=== PATIENT | female | born 1985 | race Caucasian/White ===

== ENCOUNTER 2018-07-15 21:44 | Inpatient (IN) | payer MEDICAID, OTHER ==
[~2018-07-15] VITALS: Ht 157.5 cm; Wt 50.3 kg
[2018-07-15] MEDS ORDERED: DiphenhydrAMINE HCL 50 MG/ML VIAL IM ONE (22:30)
[2018-07-15] MEDS ORDERED: LORazepam 2 MG/ML VIAL IM ONE (22:30)
[2018-07-15] MEDS ORDERED: HALOPERIDOL LACTATE 5 MG/ML VIAL IM ONE (22:30)
[2018-07-15] MEDS ORDERED: VENL25TA47 PO (22:37)
[2018-07-15] MEDS ORDERED: ALPR0.5T8 PO (22:37)
[2018-07-15] MEDS ORDERED: QUET100T PO (22:37)
[2018-07-15] MEDS ORDERED: LURA80 PO (22:37)
[2018-07-15] MEDS ORDERED: ZOLP10TA7 PO (22:37)
[2018-07-15 22:55] LABS: BASOPHILS % (AUTO) 0.7 % (0.0-2.0); EOSINOPHILS % (AUTO) 0.3 % (1.0-6.0); HEMATOCRIT 39.3 % (36-46); HEMOGLOBIN 13.3 g/dL (12.0-16.0); LYMPHOCYTES # (AUTO) 3.1 K/uL (1.0-4.8); LYMPHOCYTES % (AUTO) 33.8 % (22.0-44.0); MEAN CORPUSCULAR HGB CONC 33.8 G/dL (31.0-37.0); MEAN CORPUSCULAR VOLUME 86 fL (80-100); MONOCYTES # (AUTO) 0.5 K/uL (0.1-1.0); NEUTROPHILS # (AUTO) 5.5 K/uL (1.8-7.7); NEUTROPHILS % (AUTO) 60.2 % (40.0-70.0); PLATELET COUNT (AUTO) 236 K/uL (150-450); RED BLOOD CELL COUNT(AUTO) 4.58 MIL/uL (4.00-5.20); RED CELL DISTRIBUTION WIDTH 13.4 % (11.5-14.5)
[2018-07-15 23:03] LABS: AMPHET/METH SCREEN,URINE NEGATIVE (NEGATIVE); BARBITURATE SCREEN, URINE NEGATIVE (NEGATIVE); BENZODIAZEPINES SCREEN,URINE NEGATIVE (NEGATIVE); CANNABINOID SCREEN,URINE POSITIVE (NEGATIVE); COCAINE SCREEN,URINE NEGATIVE (NEGATIVE); METHADONE SCREEN, URINE NEGATIVE (NEGATIVE); OPIATE SCREEN,URINE NEGATIVE (NEGATIVE); PHENCYCLIDINE SCREEN,URINE NEGATIVE (NEGATIVE)
[2018-07-15 23:07] LABS: ANION GAP 15 mmol/L (8-16); CARBON DIOXIDE 21 mmol/L (22-29); CHLORIDE 105 mmol/L (98-107); CREATININE 0.44 mg/dL (0.60-1.30); GLOMERULAR FILTR. RATE CALC > 60 mL/min (>60); GLUCOSE,RANDOM 84 mg/dL (70-110); POTASSIUM 3.7 mmol/L (3.5-5.1); SODIUM SERUM 141 mmol/L (136-145); UREA NITROGEN, BLOOD 5 mg/dL (7-18)
[2018-07-15 23:19] LABS: ALANINE AMINOTRANSFERASE 22 U/L (12-78); ALBUMIN 4.7 g/dL (3.4-5.0); ALKALINE PHOSPHATASE 43 U/L (46-116); ASPARTATE AMINOTRANSFERASE 18 U/L (15-37); BILIRUBIN,TOTAL 0.2 mg/dL (0.1-1.0); HCG,QUANTITATIVE < 1 mIU/mL (0-6)
[2018-07-16] MEDS ORDERED: ZOLPIDEM TARTRATE 10 MG TABLET PO PRN (00:45)
[2018-07-16] MEDS ORDERED: NICOTINE 14 MG/24 HOUR PATCH TD PRN (06:45)
[2018-07-16] MEDS ORDERED: CloNIDine HCL 0.1 MG TABLET PO PRN (06:45)
[2018-07-16] MEDS ORDERED: ALBUTEROL SULFATE HFA 90 MCG/PUFF 8 GM INHALER IH PRN (06:45)
[2018-07-16] MEDS ORDERED: LOPERAMIDE HCL 2 MG CAPSULE PO PRN (06:45)
[2018-07-16] MEDS ORDERED: GuaiFENesin/D-METHORPHAN [SUGAR-FREE] 200-20MG/10 ML SYRUP UDCUP PO PRN (06:45)
[2018-07-16] MEDS ORDERED: ACETAMINOPHEN 325 MG TABLET PO PRN (06:45)
[2018-07-16] MEDS ORDERED: DOCUSATE SODIUM 100 MG CAPSULE PO PRN (06:45)
[2018-07-16] MEDS ORDERED: ONDANSETRON HCL 4 MG TABLET PO PRN (06:45)
[2018-07-16] MEDS ORDERED: IBUPROFEN 400 MG TABLET PO PRN (06:45)
[2018-07-16] MEDS ORDERED: MAGNESIUM HYDROXIDE SUSPENSION 30 ML UDCUP PO PRN (06:45)
[2018-07-16] MEDS ORDERED: PETROLATUM,WHITE 28 GM JELLY TP PRN (06:45)
[2018-07-16] MEDS ORDERED: MAG HYDROX/AL HYDROX/SIMETH ES 30 ML SUSPENSION UDCUP PO PRN (06:45)
[2018-07-16] MEDS: LORazepam 2 MG TABLET PO PRN (09:32)
[2018-07-16] MEDS: HALOPERIDOL 5 MG TABLET PO PRN (09:32)
[2018-07-16] MEDS ORDERED: VENLAFAXINE HCL 37.5 MG ER CAPSULE PO SCH ×2 (10:15)
[2018-07-16] MEDS: QUEtiapine FUMARATE 100 MG TABLET PO SCH ×2 (10:25→16:22)
[2018-07-16 15:03] VITALS: BP 113/84
[2018-07-16] MEDS: ALPRAZolam 1 MG TABLET PO SCH ×2 (15:06→16:22)
[2018-07-16] MEDS: VENLAFAXINE HCL 75 MG ER CAPSULE PO SCH (16:22)
[2018-07-16 16:33] VITALS: BP 116/78
[2018-07-16] MEDS: RisperiDONE 2 MG TABLET PO SCH (21:26)
[2018-07-17] VITALS (12 sets, daily range): BP systolic 107–123; BP diastolic 56–76
[2018-07-17] MEDS: LORazepam 2 MG TABLET PO PRN ×3 (07:12→20:23)
[2018-07-17 07:50] LABS: BASOPHILS % (AUTO) 0.6 % (0.0-2.0); EOSINOPHILS % (AUTO) 1.3 % (1.0-6.0); HEMATOCRIT 37.1 % (36-46); HEMOGLOBIN 12.6 g/dL (12.0-16.0); LYMPHOCYTES # (AUTO) 1.8 K/uL (1.0-4.8); LYMPHOCYTES % (AUTO) 33.3 % (22.0-44.0); MEAN CORPUSCULAR HEMOGLOBIN 29.6 pg (26.0-34.0); MEAN CORPUSCULAR VOLUME 87 fL (80-100); MONOCYTES # (AUTO) 0.4 K/uL (0.1-1.0); MONOCYTES % (AUTO) 6.8 % (2.0-9.0); NEUTROPHILS # (AUTO) 3.1 K/uL (1.8-7.7); PLATELET COUNT (AUTO) 191 K/uL (150-450); RED BLOOD CELL COUNT(AUTO) 4.27 MIL/uL (4.00-5.20); RED CELL DISTRIBUTION WIDTH 13.3 % (11.5-14.5)
[2018-07-17 08:10] LABS: HEMOGLOBIN A1C 5.3 % (4.5-6.2)
[2018-07-17 08:26] LABS: ALANINE AMINOTRANSFERASE 28 U/L (12-78); ALKALINE PHOSPHATASE 39 U/L (46-116); ANION GAP 8 mmol/L (8-16); ASPARTATE AMINOTRANSFERASE 25 U/L (15-37); BILIRUBIN,TOTAL 0.5 mg/dL (0.1-1.0); CALCIUM, TOTAL 9.3 mg/dL (8.8-10.5); CARBON DIOXIDE 27 mmol/L (22-29); CHLORIDE 105 mmol/L (98-107); CHOL/HDL RATIO 2.7 (3.9-5.7); CHOLESTEROL 176 mg/dL (131-200); CREATININE 0.57 mg/dL (0.60-1.30); GLOMERULAR FILTR. RATE CALC > 60 mL/min (>60); GLUCOSE,RANDOM 89 mg/dL (70-110); HDL CHOLESTEROL 65 mg/dL (40-60); LDL CHOL (CALC.) 86 mg/dL (0-130); POTASSIUM 4.4 mmol/L (3.5-5.1); SODIUM SERUM 140 mmol/L (136-145); THYROID STIMULATING HORMONE 0.77 uIU/mL (0.36-3.74); TRIGLYCERIDES 124 mg/dL (15-150); UREA NITROGEN, BLOOD 10 mg/dL (7-18)
[2018-07-17] MEDS: QUEtiapine FUMARATE 100 MG TABLET PO SCH ×2 (08:32→16:04)
[2018-07-17] MEDS: VENLAFAXINE HCL 75 MG ER CAPSULE PO SCH (08:32)
[2018-07-17] MEDS: ALPRAZolam 1 MG TABLET PO SCH ×3 (09:49→16:05)
[2018-07-17] MEDS: VENLAFAXINE HCL 150 MG ER CAPSULE PO SCH (16:05)
[2018-07-17] MEDS: RisperiDONE 2 MG TABLET PO SCH (20:09)
[2018-07-18] MEDS: LORazepam 2 MG TABLET PO PRN ×3 (08:16→21:44)
[2018-07-18] MEDS: QUEtiapine FUMARATE 100 MG TABLET PO SCH ×2 (08:16→16:09)
[2018-07-18] MEDS: ALPRAZolam 1 MG TABLET PO SCH ×4 (08:37→20:48)
[2018-07-18] MEDS: VENLAFAXINE HCL 150 MG ER CAPSULE PO SCH ×2 (08:37→16:09)
[2018-07-18 09:44] VITALS: BP 108/71
[2018-07-18 16:00] VITALS: BP 112/79
[2018-07-18] MEDS: RisperiDONE 2 MG TABLET PO SCH (20:48)
[2018-07-18 21:41] VITALS: BP 110/78
[2018-07-19 05:28] VITALS: BP 108/79
[2018-07-19] MEDS ORDERED: BISACODYL 5 MG EC TABLET PO PRN (06:30)
[2018-07-19 08:00] VITALS: BP 104/70
[2018-07-19] MEDS: QUEtiapine FUMARATE 100 MG TABLET PO SCH (08:16)
[2018-07-19] MEDS: HALOPERIDOL 5 MG TABLET PO PRN (08:16)
[2018-07-19] MEDS: ALPRAZolam 1 MG TABLET PO SCH ×2 (08:37→12:47)
[2018-07-19] MEDS: VENLAFAXINE HCL 150 MG ER CAPSULE PO SCH (08:37)
[2018-07-19] MEDS ORDERED: RISP2 PO (08:49)
[2018-07-19] MEDS ORDERED: QUET100T PO (08:49)
[2018-07-19] MEDS ORDERED: VENL-68 PO (08:49)
[2018-07-19] MEDS: LORazepam 2 MG TABLET PO PRN (09:32)
[2018-07-19] MEDS ORDERED: ZOLP10TA7 PO (09:46)
[2018-07-19] MEDS ORDERED: ALPR0.5T8 PO (09:54)
== END 2018-07-19 13:10 | disposition home or self-care (01) | DRG 753 ==
LOC: EMS 21:49 → 3EI 07-16 00:30 → B2S 07-16 19:05
PROVIDERS: ADMIT Psychiatry & Neurology Child & Adolescent Psychiatry; ATTEND Psychiatry & Neurology Child & Adolescent Psychiatry
DX: F31.4 Bipolar disorder, current episode depressed, severe, without psychotic features (principal); R45.851 Suicidal ideations; F10.10 Alcohol abuse, uncomplicated; G47.00 Insomnia, unspecified; F41.8 Other specified anxiety disorders; F19.10 Other psychoactive substance abuse, uncomplicated; F12.90 Cannabis use, unspecified, uncomplicated; Z88.0 Allergy status to penicillin; Z88.1 Allergy status to other antibiotic agents; Z88.5 Allergy status to narcotic agent; Z71.41 Alcohol abuse counseling and surveillance of alcoholic; Z71.51 Drug abuse counseling and surveillance of drug abuser; Z88.8 Allergy status to other drugs, medicaments and biological substances; Z79.899 Other long term (current) drug therapy; Y90.9 Presence of alcohol in blood, level not specified
CPT/HCPCS: 83036; 84443; 96372; G0480; J1200; J1630; J2060